=== PATIENT | female | born 1960 | race Caucasian/White ===

== ENCOUNTER → 2016-09-02 | Outpatient (CLI) | payer OTHER | LOC: BMCIMAGING 09:19 | PROVIDERS: ATTEND Internal Medicine Endocrinology, Diabetes & Metabolism | DX: E04.2 Nontoxic multinodular goiter (principal) | CPT/HCPCS: 76536-PO ==

== ENCOUNTER → 2017-10-31 | Outpatient (CLI) | payer OTHER | LOC: BMCIMAGING 13:10 | PROVIDERS: ATTEND Family Medicine | DX: Z12.31 Encounter for screening mammogram for malignant neoplasm of breast (principal) ==

== ENCOUNTER 2018-02-08 09:49 | Inpatient (IN) | payer OTHER ==
--- NOTE | 2018-02-08 09:51 | EDPHY ---
HPI/HX/ROS/PE/MDM Narrative: CHIEF COMPLAINT: Low back pain HPI: The patient is a 57 y/o female arriving via EMS complaining of lower left back pain associated with spasms onset 3 days ago. The patient was shoveling dirt and rocks one day prior to onset of symptoms; she denies having pain immediately after shoveling. However, the next morning she was unable to get out of bed due to the pain. This back pain is more severe than prior episodes of back pain. She denies falling or hitting her back prior to onset of symptoms. She was able to stand up to go to the bathroom, but was unable to physically sit on the toilet as it exacerbated her pain. She denies painful urination or numbness. Last night she developed minor tingling in her left leg associated with pain in her left ankle. This morning the pain continued, so she took 2 tablets of Naproxen and 1 tablet of Valium at 8:30. As the pain has not improved after taking the medications she decided to call EMS. While en route to the emergency department the patient had stable vital signs and was given 4mg Zofran. No headache, neck pain, chest pain, abdominal pain, bowel complaints , fever. REVIEW OF SYSTEMS: Aside from elements discussed in the HPI, a comprehensive 10 system review of systems is otherwise negative. PMH: Hypercholesteremia, no vertebral artery, knee surgery, tonsillectomy, c- sections SOCIAL HISTORY: at bedside, lives in [place], employed with the [employer] PHYSICAL EXAM: General: Patient is alert, in no acute distress. ENT: Eyes are normal to inspection. ENT inspection normal. Neck: Normal inspection. Full range of motion. Respiratory: No respiratory distress. Breath sounds normal bilaterally. Cardiovascular: Regular rate and rhythm. Strong peripheral pulses. Normal cap refill. Abdomen: The abdomen is nontender to palpation. There are no peritoneal signs. There are normal bowel sounds. Back: Normal to inspection. Tenderness to palpation present in left sciatic notch region. Skin: Normal color. No rash. Warm and dry. Extremities: Normal appearance. Full range of motion. Neuro: Oriented x3. Normal motor function. 5/5 strength in bilateral lower extremities. Normal sensory function. No saddle anesthesia. Ambulatory without assistance but with pain. ED Course: 948: I met EMS upon arrival. Imaging and laboratory studies are not indicated at this time. 10mg PO Flexeril, 0.5mg IV Dilaudid, and 15mg IV Toradol administered. 1050: Reassessed patient, she is actively vomiting; 4mg IV Zofran administered. 1323: Reassessed patient, her pain and nausea has improved after medication. She is safe to be discharged. I have prescribed her Percocet, Flexeril, Zofran, and a Medrol-dose pack. I have also advised her to follow up with a neurosurgeon within the next week. Return precautions provided; patient is comfortable with this plan. 1443: Reassessed patient, she is unable to stand up and ambulate. She will need to be admitted for pain control, which she is comfortable with. 1449: I consulted with the hospitalist service, Dr. Dunlap accepts admission of this patient. MDM: This patient presents with severe left-sided atraumatic low back pain. From history, it sounds like this has been slowly worsening and was exacerbated by shoveling. History is highly suggestive of herniated disc/sciatica. Given no signs of cauda equina or infectious etiology, and no history of trauma, I do not think MRI or other imaging is indicated. Despite numerous pain medication modalities, patient still having severe pain and does not feel she can stand drive back to [facility]. They have elected for observation admit for pain control and further workup. I see no signs of AAA, pyelonephritis, kidney stone , bowel obstruction. - Data Points Laboratory Results: Laboratory Results 02/08/18 11:55 02/08/18 11:55 02/08/18 02/08/18 02/08/18 12:20 11:55 11:55 WBC 10.11 10^3/uL H 10^3/uL (3.80-9.50) RBC 4.80 10^6/uL 10^6/uL (4.18-5.33) Hgb 14.5 g/dL g/dL (12.6-16.3) Hct 44.6 % % (38.0-47.0) MCV 92.9 fL fL (81.5-99.8) MCH 30.2 pg pg (27.9-34.1) MCHC 32.5 g/dL g/dL (32.4-36.7) RDW 13.8 % % (11.5-15.2) Plt Count 304 10^3/uL 10^3/uL (150-400) MPV 9.6 fL fL (8.7-11.7) Neut % (Auto) 86.8 % H % (39.3-74.2) Lymph % (Auto) 8.8 % L % (15.0-45.0) Geary % (Auto) 4.1 % L % (4.5-13.0) Eos % (Auto) 0.0 % L % (0.6-7.6) Baso % (Auto) 0.2 % L % (0.3-1.7) Nucleat RBC Rel Count 0.0 % % (0.0-0.2) Absolute Neuts (auto) 8.78 10^3/uL H 10^3/uL (1.70-6.50) Absolute Lymphs (auto) 0.89 10^3/uL L 10^3/uL (1.00-3.00) Absolute Monos (auto) 0.41 10^3/uL 10^3/uL (0.30-0.80) Absolute Eos (auto) 0.00 10^3/uL L 10^3/uL (0.03-0.40) Absolute Basos (auto) 0.02 10^3/uL 10^3/uL (0.02-0.10) Absolute Nucleated RBC 0.00 10^3/uL 10^3/uL (0-0.01) Immature Gran % 0.1 % % (0.0-1.1) Immature Gran # 0.01 10^3/uL 10^3/uL (0.00-0.10) Sodium 141 mEq/L mEq/L (135-145) Potassium 4.5 mEq/L mEq/L (3.3-5.0) Chloride 109 mEq/L mEq/L (97-110) Carbon Dioxide 24 mEq/l mEq/l (22-31) Anion Gap 8 mEq/L mEq/L (8-16) BUN 19 mg/dL mg/dL (7-23) Creatinine 0.7 mg/dL mg/dL (0.6-1.0) Estimated GFR > 60 Glucose 122 mg/dL H mg/dL (70-100) Calcium 9.3 mg/dL mg/dL (8.5-10.4) Urine Color YELLOW Urine Appearance HAZY Urine pH 5.0 (5.0-7.5) Ur Specific Violet 1.034 H (1.002-1.030) Urine Protein NEGATIVE (NEGATIVE) Urine Ketones 1+ H (NEGATIVE) Urine Blood NEGATIVE (NEGATIVE) Urine Nitrate NEGATIVE (NEGATIVE) Urine Bilirubin NEGATIVE (NEGATIVE) Urine Urobilinogen 2.0 EU H EU (0.2-1.0) Ur Leukocyte Esterase NEGATIVE (NEGATIVE) Urine Glucose NEGATIVE (NEGATIVE) Medications Given: Discontinued Medications Cyclobenzaprine HCl (Flexeril) 10 mg PO EDNOW ONE Stop: 02/08/18 10:02 Last Admin: 02/08/18 10:09 Dose: 10 mg Hydromorphone HCl (Dilaudid) 0.5 mg IVP EDNOW ONE Stop: 02/08/18 10:01 Last Admin: 02/08/18 10:09 Dose: 0.5 mg Ketorolac Tromethamine (Toradol) 15 mg IVP EDNOW ONE Stop: 02/08/18 10:01 Last Admin: 02/08/18 10:09 Dose: 15 mg Ondansetron HCl (Zofran) 4 mg IVP EDNOW ONE Stop: 02/08/18 11:00 Last Admin: 02/08/18 11:43 Dose: 4 mg General Time Seen by Provider: 02/08/18 09:49 Initial Vital Signs: Initial Vital Signs Temperature (C) 36.5 C 02/08/18 09:55 Heart Rate 81 02/08/18 09:55 Respiratory Rate 16 02/08/18 09:55 Blood Pressure 124/86 H 02/08/18 09:55 O2 Sat (%) 97 02/08/18 09:55 O2 Delivery Mode Nasal Cannula O2 (L/minute) 2 Allergies/Adverse Reactions: codeine [Codeine] Allergy (Verified 01/25/11 12:41) Iodinated Contrast- Oral and IV Dye [IV Dye, Iodine Containing Contrast ] Allergy (Verified 01/25/11 12:41) Penicillins Allergy (Verified 01/25/11 12:41) Home Medications: Medication Instructions Recorded Statin 01/25/11 Cyclobenzaprine [Flexeril] 10 mg PO TID #15 tab 09/12/18 DIAZEPAM 02/08/18 Ondansetron Odt [Zofran Odt] 4 mg PO Q4PRN PRN #10 tab 02/08/18 methylPREDNISolone [Medrol Dose 1 each PO AD #1 ea 02/08/18 Shawn] oxyCODONE/APAP 5/325 [Percocet 1 - 2 tab PO Q6H PRN #20 tab 02/08/18 5/325 (*)] Departure - Departure Disposition: [facility] Inpatient Acute Clinical Impression: Pain management Low back pain Qualifiers: Chronicity: acute Back pain laterality: left Sciatica presence: without sciatica Qualified Code(s): M54.5 - Low back pain Condition: Fair Report Scribed for: Ezra Massey Report Scribed by: Xin Tyson Date of Report: 02/08/18 Time of Report: 09:52 Physician Review and Approval Statement: Portions of this note were transcribed by an ED scribe. I personally performed the history, physical exam, and medical decision making; and confirm the accuracy of the information in the transcribed note.
[2018-02-08] MEDS ORDERED: HYDROmorphONE/DILAUDID 2 MG/ML INJ IVP ONE (10:00)
[2018-02-08] MEDS ORDERED: KETOROLAC 30 MG/1 ML SDV IVP ONE (10:00)
[2018-02-08] MEDS ORDERED: CYCLOBENZAPRINE 10 MG TAB PO ONE (10:01)
[2018-02-08] MEDS ORDERED: ONDANSETRON 4 MG/2 ML VIAL ONE (10:53)
[2018-02-08] MEDS ORDERED: ONDANSETRON 4 MG/2 ML VIAL IVP ONE (10:59)
[2018-02-08 12:06] LABS: PLATELET COUNT 304 10^3/uL (150-400)
[2018-02-08] MEDS ORDERED: ACETAMINOPHEN 325 MG TAB PO PRN (15:40)
[2018-02-08] MEDS ORDERED: HYDROmorphONE/DILAUDID 1 MG/ML INJ IVP PRN (15:40)
[2018-02-08] MEDS ORDERED: PROMETHAZINE HCL 25 MG/ML INJ IVP PRN (15:40)
[2018-02-08] MEDS ORDERED: DIAZEPAM 10 MG TAB PO PRN (16:18)
[2018-02-08] MEDS: DIAZEPAM 5 MG TAB PO PRN (16:51)
--- NOTE | 2018-02-08 17:07 | GHP ---
DATE OF ADMISSION: 02/08/2018 CHIEF COMPLAINT: Low back pain. HISTORY OF PRESENT ILLNESS: The patient is a 57-year-old female who has been having low back spasms off and on for the last couple months, typically when she rolls over in bed at night, but subsequentl y she would get relief. 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 H ad a big cramp yesterday, but it resolved, and now she woke up this morning with severe continuous pa in that is unrelenting. It is on the left side of her spine, 10/10, lumbar radiating down the back o f her leg. She denies any lower extremity numbness or weakness. There is no urinary incontinence. There have been no fever, chills, or weight loss. Mobility is so severely compromised her co uld not get her into the car, and they had to call 911 to get her to the emergency room. She has tro uble going to the restroom and cannot sit upright. PAST MEDICAL HISTORY: 1. Asthma. 2. 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 3. Hypercholesterolemia. PAST SURGICAL HISTORY: 1. Tonsillectomy. 2. Knee surgery. 3. x2. MEDICATIONS: Please see computer record full detailed list. ALLERGIES: IV dye and penicillin. SOCIAL HISTORY: No smoking. She occasionally will drink a beer. She lives with her . They own a hobby ranch with horses. REVIEW OF SYSTEMS: Complete review of systems obtained. Review of systems negative for constitution al, HEENT, GI, pulmonary, cardiovascular, , hematologic, musculoskeletal, endocrine, and psych exce pt for positives as in HPI. FAMILY HISTORY: Reviewed and noncontributory to presenting complaint. PHYSICAL EXAMINATION: GENERAL: Well-developed, well-nourished female, in no acute distress. VITAL SIGNS: Temperature is 36.5, pulse 92, blood pressure 134/77, sat 94% on room air. EYES: Normal con junctivae. Pupils equal and react to light. ENT: Normal ears and nose. Hearing intact. Normal te eth. Oropharynx moist. NECK: Trachea midline. No thyromegaly. CHEST: Normal respiratory effort. LUNGS: Clear to auscultation bilaterally. CARDIOVASCULAR: Regular rate and rhythm. No murmur. No lower extremity edema. ABDOMEN: Soft, nontender. No hepatosplenomegaly. SKIN: Warm, dry, inta ct. No rash. MUSCULOSKELETAL: No cyanosis or clubbing. Strength 5/5 upper and lower extremities. NEUROLOGIC: Cranial nerves intact. Normal sensation to light touch. PSYCH: Alert and oriented x3 . Normal affect. Normal judgment and insight. Normal memory. LABORATORY DATA: White count 10.11, hematocrit 44.6, platelets 304. Sodium 141, potassium 4.5, chlo ride 109, bicarb 24, BUN 19, creatinine 0.7, glucose 1.2. Urinalysis is negative. ASSESSMENT/PLAN: 1. Severe low back pain with radiculopathy down the left leg. Unable to safely ambulate. Will admi t to observation. Will order MRI of the lumbar spine. I have consulted Neurosurgery and spoken with Stacey ROBERTS regarding consultation. Pain control will be continued with IV Dilaudid. She ma y benefit from an epidural steroid injection. 2. Hyperlipidemia. Continue Crestor. 3. Asthma. This is stable. CODE STATUS: Full. ADMISSION STATUS: Will admit to observation. Re-evaluate tomorrow regarding ongoing need for hospit alization. DVT PROPHYLAXIS: She is low risk. Will ambulate early. /[id number]/MODL
--- NOTE | 2018-02-08 17:17 | GCON ---
NEUROSURGICAL CONSULTATION CHIEF COMPLAINT: Low back pain, and left buttock and posterior thigh pain. HISTORY OF PRESENT ILLNESS: The patient is a pleasant 57-year-old female, who states that for the several months she has been dealing with occasional flare-ups of tailbone, and left buttock and po sterior thigh pain. Typically, she states that stretching and antiinflammatories alleviate her sympt oms. Approximately 2 days ago on Tuesday, the patient developed severe spasms in her left buttock and posterior thigh, as well as tailbone pain that she thinks were triggered after moving some rocks and hay, and working at a horse show. Her usual treatment options failed to improve her symptoms. She was in such significant pain that she required an ambulance to transport her from her hospital in [facility] down to the [facility] Emergency Department. The patient has subsequently been admitted to the medicine service for pain control and is pending a lumbar MRI. Currently, she rates her pain at 4/10 after being given Flexeril, Toradol, and Dilaudid in the ED. She states she is having occasional severe muscle spasms in her left buttock and posterior thigh. Sh jack is not having any pain below the left knee and no right leg pain. She denies any bowel or bladder incontinence, but states she has not had a bowel movement since Tuesday. She is not reporting any num bness, tingling, or weakness. ALLERGIES: 1. Codeine. 2. Penicillin, which causes a rash. 3. Contrast dye. CURRENT MEDICATIONS: Naprosyn, Crestor, and 325 mg of aspirin daily. PAST MEDICAL HISTORY: Occluded left vertebral artery. PAST SURGICAL HISTORY: Tonsillectomy, x2, and right ACL repair. REVIEW OF SYSTEMS: Low back pain. Left buttock, tailbone, and posterior thigh pain. Left scapular pain. Also, nausea. Otherwise negative, other than mentioned in the HPI. PHYSICAL EXAM: GENERAL: This is a pleasant, healthy-appearing 57-year-old female in moderate distre ss. HEAD, EYES, EARS, NOSE, AND THROAT: Within normal limits. EXTREMITIES: Within normal limits. NEUROLOGIC EXAM: The patient is awake, alert, and oriented x4. Cranial nerves [address] to gross examination. Speech is fluent. Tongue is midline. Spinal accessory muscles are intact. She has equal and symmetric strength of bilateral upper and lower extremities in all muscle groups, with normal sensation in all dermatomal distributions of the bilateral upper and lower extremities. Reflexes are 2+/4 at bilateral biceps and brachioradialis, 3/4 in left patellar, and 1/4 in right pa tellar with no Garcia and no clonus. She has a positive left straight leg raise over 45 degrees. DATA REVIEW: White blood cell count 10.1, hemoglobin 14.5, hematocrit 44.6, and platelets 304. Sodi um is 141. IMPRESSION: This is a 57-year-old female with a several-month history of intermittent low back, left buttock, and posterior thigh pain, who has had an acute flare-up for the past 2 days. Neurologicall y, the patient is intact. Her pain is now under better control at 4/10 since receiving pain medicati ons and muscle relaxants in the emergency department. PLAN: All above issues were discussed with the patient in detail, with her present. At this time, I recommend that the patient continue receiving pain medications and muscle relaxants as neede d for pain control. She would also benefit from a 10 mg dose of Decadron x1, which we will order. T he patient is currently slated to undergo an MRI this evening of the lumbar spine. Further treatment recommendations will be offered upon review of those results. /[id number]/MODL
[2018-02-08] MEDS: ONDANSETRON 4 MG/2 ML VIAL IVP PRN (18:42)
[2018-02-08] MEDS: KETOROLAC 30 MG/1 ML SDV IVP PRN (18:42)
[2018-02-08] MEDS: ROSUVASTATIN CALCIUM 20 MG TAB PO SCH (20:16)
[2018-02-08] MEDS: traMADol 50 MG TAB PO PRN (20:28)
[2018-02-08] MEDS: HYDROmorphone HCL 0.5 MG/0.5 ML SYR IVP PRN (22:39)
[2018-02-09] MEDS: traMADol 50 MG TAB PO PRN (04:10)
[2018-02-09] MEDS ORDERED: MAGNESIUM HYDROXIDE 30 ML UDCUP PO PRN (08:35)
[2018-02-09] MEDS: ONDANSETRON 4 MG/2 ML VIAL IVP PRN (08:35)
[2018-02-09] MEDS ORDERED: LACTULOSE 20 GM/30 ML UDCUP PO PRN (08:35)
[2018-02-09] MEDS ORDERED: POLYETHYLENE GLYCOL 3350 17 GM PKT PO PRN (08:35)
[2018-02-09] MEDS ORDERED: BISACODYL 10 MG SUPP PR PRN (08:35)
[2018-02-09] MEDS: KETOROLAC 30 MG/1 ML SDV IVP PRN ×3 (08:35→20:40)
[2018-02-09] MEDS: oxyCODONE IR 5 MG TAB PO PRN ×3 (08:36→20:51)
[2018-02-09] MEDS: DIAZEPAM 5 MG TAB PO PRN ×2 (08:36→15:53)
--- NOTE | 2018-02-09 09:23 | NEUSURGPN ---
Assessment/Plan: A: 57 yo F with intractable left sided low back pain P: MRI L spine reviewed - to be reviewed by Dr Reynolds today. Shows disc bulges at L45 and L5S1. There may be some slight nerve compression on the left at L5/S1. I have ordered a left L5/S1 IL JIM - Dr Reynolds to review the images to see if he agrees with this plan PT/OT Pain control D/w Dr Reynolds Call NS with any issues Subjective: Pt resting in bed, was able to sleep last night. Pain controlled right now but has not moved yet Objective: AAOx3 NAD VSS MAEx4 Motor 5/5 BLE +LT Urinary Catheter in Place: No - Physician Discussed Patient with .: Marko Neurosurgery Physical Exam - Vitals, I&O, Labs I and O 02/08/18 02/09/18 02/10/18 05:59 05:59 05:59 Intake Total 1700 Output Total 645 Balance 1055 Weight 70.307 kg Intake: Oral (ml) 700 IV Infused (ml) 1000 Output: Urine (ml) 600 Catheter 600 Emesis (ml) 45 Other: Output Comment Catheter Straight cath Bladder Scan Volume (ml) Bedside Commode 600 Number of Emesis 1 Occurrences Vital Signs Temp Pulse Resp BP Pulse Ox 37.1 C 67 16 111/76 88 L 02/09/18 08:54 02/09/18 08:54 02/09/18 08:54 02/09/18 08:54 02/09/18 09:20 ICD10 Worksheet Patient Problems: Problems Problem Status Onset Low back pain Acute Pain management Acute
--- NOTE | 2018-02-09 09:25 | HOSPPROG ---
Hospitalist Progress Note Assessment/Plan: DIAGNOSES: * lumbar buttock and left posterior thigh pain with muscle spasms * lumbar disc disease with some L5-S1 disc protrusion on the left potentially contributing to her symptoms * ongoing inability to get herself from lying to sitting due to pain and spasms * has required urethral straight catheterization for bladder voiding due to inability to get to bedside commode or bed villanueva with her pain PLANS: * Continue muscle relaxers and analgesics * She is scheduled for an epidural steroid injection today * Continued attempts to increase mobility as able * If we are unable to increase her mobility successfully will end up needing to continue management of her pain and other issues here in the hospital, in which case I will change her to inpatient status SUBJECTIVE: Still with severe back and leg pain on the left, severe spasms and increased pain with any attempted movement so remains lying supine in bed Has only once been able to get up to commode and that took approximately 40 min to get from bed to commode with assistance of 2 staff and with extra medication Was able to empty bladder when she got up. No incontinence of bowel or bladder , no loss of sensation anywhere OBJECTIVE Vitals reviewed: Stable without fever Exam: alert oriented skin warm dry color ok resps not labored lungs clear BSs heart regular abd soft nondistended nontender, bowel sounds present limbs warm, no edema iv site ok Objective: Vital Signs Temp Pulse Resp BP Pulse Ox 37.1 C 67 16 111/76 88 L 02/09/18 08:54 02/09/18 08:54 02/09/18 08:54 02/09/18 08:54 02/09/18 09:20 02/08/18 02/09/18 02/10/18 06:59 06:59 06:59 Intake Total 1700 Output Total 645 Balance 1055 ICD10 Worksheet Patient Problems: Problems Problem Status Onset Low back pain Acute Pain management Acute
[2018-02-09] MEDS: SENNOSIDES/DOCUSATE SODIUM TAB PO SCH ×2 (09:26→20:41)
[2018-02-09] MEDS: HYDROmorphone HCL 0.5 MG/0.5 ML SYR IVP PRN ×2 (09:33→15:53)
[2018-02-09] MEDS ORDERED: DEXAMETHASONE 10 MG/ML VIAL IV ONE (11:45)
--- NOTE | 2018-02-09 14:17 | ASMTCASEMG ---
Living Arrangements What is your living Answers: With Spouse arrangement? Who do you live with? Type Of Residence What kind of residence do Answers: House you live in? Discharge Plan Comments Coordination Status Comments Notes: Pts case discussed in tx rounds. Pt is a 57 y/o female admitted for back pain. 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 Therapies have been ordered and awaiting recommendations. Needs are TBD at this time. CM to follow. Plan: TBD Date Signed: 02/09/2018 01:55 PM Electronically Signed By:DENZEL Walker
[2018-02-09] MEDS ORDERED: TRIAMCINOLONE ACETONIDE 200 MG/5 ML MDV IM ONE (14:54)
[2018-02-09] MEDS ORDERED: IOPAMIDOL (ISOVUE-M 300) 15 ML VIAL ONE (14:54)
[2018-02-09] MEDS: ROSUVASTATIN CALCIUM 20 MG TAB PO SCH (20:41)
[2018-02-09] MEDS ORDERED: CALCIUM CARBONATE 500 MG CHEWABLE TAB PO PRN (22:15)
[2018-02-10] MEDS: oxyCODONE IR 5 MG TAB PO PRN ×3 (02:30→20:40)
[2018-02-10] MEDS: DIAZEPAM 5 MG TAB PO PRN ×2 (02:31→10:39)
[2018-02-10 03:59] LABS: PLATELET COUNT 291 10^3/uL (150-400)
--- NOTE | 2018-02-10 06:46 | PDMN ---
Medical Necessity Medical necessity: Change to inpt as of 02/09/18 @ 21:30. Pt meets inpt criteria per MD order and [facility] [place]. 57 y/o admitted w/severe low back pain w/ radiculopathy to E, very limited mobility, unable to sit or stand due to pain/ muscle spasms, has required urethral straight catheterization for bladder voiding due to immobility. Neurosurg consult, MRI pelvis and lumbar spine, further diagnostics needed to determine cause of pain, ortho consult pending, IV Dilaudid and IV Toradol for pain in addition to PO, IV Phenergan or Zofran for N/V, ongoing PT eval, anticipate>2MN for further evaluation and treatment.
--- NOTE | 2018-02-10 07:51 | NEUSURGPN ---
Assessment/Plan: A: 57 yo F with intractable left sided low back pain P: MRI L spine reviewed - to be reviewed by Dr Reynolds today. Shows disc bulges at L45 and L5S1 but no severe compression. Dr. Reynolds does not think her pain is spine related and the JIM was cancelled MRI pelvis done and report is pending, ortho eval pending Pain control D/w Dr Reynolds Call NS with any issues Subjective: Pt resting in bed, states pain is the same Objective: AAOx3 NAD VSS MAEx4 Motor 5/5 BLE +LT Urinary Catheter in Place: No - Physician Discussed Patient with : Marko Neurosurgery Physical Exam - Vitals, I&O, Labs I and O 02/09/18 02/10/18 02/11/18 05:59 05:59 05:59 Intake Total 220 Output Total 225 Balance -5 Intake: Oral (ml) 220 Output: Urine (ml) 225 Bedpan 0 Catheter 225 Other: Number of Voids Bedpan 1 Post Void Residual Scan Volume (ml) Bedpan 196 Vital Signs Temp Pulse Resp BP Pulse Ox 36.6 C 66 14 104/63 96 02/10/18 03:05 02/10/18 03:05 02/10/18 03:05 02/10/18 03:05 02/10/18 03:05 Laboratory Results 02/10/18 03:34 ICD10 Worksheet Patient Problems: Problems Problem Status Onset Low back pain Acute Pain management Acute
[2018-02-10] MEDS: KETOROLAC 30 MG/1 ML SDV IVP PRN ×2 (08:23→18:10)
[2018-02-10] MEDS: SENNOSIDES/DOCUSATE SODIUM TAB PO SCH ×2 (08:30→20:39)
[2018-02-10] MEDS: ONDANSETRON 4 MG/2 ML VIAL IVP PRN (11:30)
[2018-02-10] MEDS: HYDROmorphone HCL 0.5 MG/0.5 ML SYR IVP PRN (11:33)
--- NOTE | 2018-02-10 12:35 | ASMTCMCOM ---
CM Note CM Note Notes: Pts case discussed in tx rounds. PT is recommending DME and pending improvement of pain. Pt has not been up walking since getting to the hospital. Dr. Fatima will be visiting w/ pt today. Needs are TBD at this time. CM to follow. Plan: TBD Date Signed: 02/10/2018 12:15 PM Electronically Signed By:DENZEL Walker
[2018-02-10] MEDS: CYCLOBENZAPRINE 10 MG TAB PO SCH ×2 (12:55→20:40)
--- NOTE | 2018-02-10 17:31 | HOSPPROG ---
Hospitalist Progress Note Assessment/Plan: DIAGNOSES: * lumbar buttock and left posterior thigh pain with muscle spasms * lumbar disc disease with some L5-S1 disc protrusion on the left potentially contributing to her symptoms * ongoing inability to get herself from lying to sitting due to pain and spasms * has required urethral straight catheterization for bladder voiding due to inability to get to bedside commode or bed villanueva with her pain I reviewed her case again today with Dr. Oswald Zhu I have also reviewed her case today with Dr. Leon who will see her in consultation for orthopedic assessment Seen by me today on hospitals rounds as well as multidisciplinary rounds PLANS: * Continue muscle relaxers and analgesics * Continued attempts to increase mobility as able * Further management plans after consultation by Dr. Leon SUBJECTIVE: Again complains mainly of pain at the anterior inguinal and hip area on the left , with severe spasms that appear to be possibly ileuspsoas spasm on any movement of her trunk or hip Still with some constipation No specific fever symptoms Still nothing that sounds like a radiculopathy or other neuropathic symptom OBJECTIVE Vitals reviewed: Stable without fever Exam: alert oriented currently while lying in bed appears uncomfortable but relaxed; per patient and staff and she has been in exquisite pain with any attempts at movement skin warm dry color ok resps not labored lungs clear BSs heart regular abd soft nondistended nontender, bowel sounds present limbs currently not much in the way of specific identifiable tenderness or palpable abnormalities around the left hip inguinal area pelvis or thigh, still with severe pain with attempting to sit up or stand though I am able still to move her left leg in passive range of motion without too much difficulty, though she is unable to move it actively on her own iv site ok Lab data: White blood cell count is a little bit better today, sed rate is normal Radiology: MRI of the pelvis and hip with and without contrast shows a partial anterior labral tear at the left hip, some tendinosis of the left hamstring origin, no evidence of ileus OS or other muscular abnormality, abscess, or other inflammatory infectious process. Objective: Vital Signs Temp Pulse Resp BP Pulse Ox 37.1 C 63 19 105/71 91 L 02/10/18 15:46 02/10/18 15:46 02/10/18 15:46 02/10/18 15:46 02/10/18 15:46 Laboratory Results 02/10/18 03:34 02/09/18 02/10/18 02/11/18 06:59 06:59 06:59 Intake Total 220 Output Total 225 225 Balance -5 -225 - Time Spent With Patient Time Spent with Patient: greater than 35 minutes Time Spent with Patient: Greater than 35 minutes spent on this patients care, greater than 50% of time spent counseling, educating, and coordinating care regarding the above mentioned plan. ICD10 Worksheet Patient Problems: Problems Problem Status Onset Low back pain Acute Pain management Acute
[2018-02-10] MEDS: ROSUVASTATIN CALCIUM 20 MG TAB PO SCH (20:40)
[2018-02-11] MEDS: CYCLOBENZAPRINE 10 MG TAB PO SCH ×3 (05:40→20:29)
[2018-02-11] MEDS: KETOROLAC 30 MG/1 ML SDV IVP PRN ×2 (08:19→17:20)
[2018-02-11] MEDS: oxyCODONE IR 5 MG TAB PO PRN ×3 (08:24→17:20)
[2018-02-11] MEDS: SENNOSIDES/DOCUSATE SODIUM TAB PO SCH ×2 (08:29→20:29)
--- NOTE | 2018-02-11 08:56 | NEUSURGPN ---
Assessment/Plan: 57 yo F with intractable left sided low back pain P: MRI L spine reviewed - to be reviewed by Dr Reynolds and shows disc bulges at L45 and L5S1 but no severe compression. Dr. Reynolds is not certain her pain is spine related and the JIM was cancelled. MRI pelvis done with findings of partial labrum tear and ischial tuberosity edema, ortho eval pending to determine if felt this is the cause Pain control D/w Dr Reynolds Call NS with any issues NS will continue to follow along with further recs pending ortho eval Subjective: still with continued severe inguinal pain left leg, as well as some secondary pain down the lateral left leg. no c/o of weakness. unable to bear weight or move leg d/t pain/ Objective: acute left sided pain at attempting strength on right leg AAOx4 VSS EOMi, PEARLA MAEx4, 5/5 BUE Pain limited BLE, RLE 5/5, DF/PF/EHL 5/5, unable to assess left hip, knees d/t pain SILT - Physician Discussed Patient with : [facility] Physical Exam - Vitals, I&O, Labs I and O 02/10/18 02/11/18 02/12/18 05:59 05:59 05:59 Intake Total 220 300 Output Total 225 625 Balance -5 -325 Intake: Oral (ml) 220 300 Output: Urine (ml) 225 625 Bedpan 0 Bedside Commode 400 Catheter 225 225 Other: Output Comment Catheter straight cath Number of Voids Bedpan 1 Bedside Commode 1 Number of Stools Bedside Commode 1 Bladder Scan Volume (ml) Bedpan 270 Post Void Residual Scan Volume (ml) Bedpan 196 Vital Signs Temp Pulse Resp BP Pulse Ox 36.4 C 75 18 123/90 H 95 02/11/18 08:00 02/11/18 08:00 02/11/18 08:00 02/11/18 08:00 02/11/18 08:00 Laboratory Results 02/10/18 03:34 ICD10 Worksheet Patient Problems: Problems Problem Status Onset Low back pain Acute Pain management Acute
--- NOTE | 2018-02-11 12:47 | GCON ---
I was asked to see the patient by the Medicine Service, with a chief complaint of left hip pain. She has been seen by Neurosurgery. She has been admitted a few days ago to the hospital with intractabl e left hip pain. It has abated somewhat over the course of her stay with various muscle relaxers and pain management, but overall still quite debilitating and limits the patient from walking. She has really been unable to get out of bed for a few days. The patient states that this pain has been brant g on for several months, she believes about 6 months, with pain localized to the left groin. It seem s to be located just over the hip joint in the inguinal fold. She also states that there was a separ ate and probably distinct component based on her description, which is down the lateral aspect of her left leg, down the lateral thigh and calf area. There is no alteration of sensation. She does not have any discernible weakness outside of hip flexion, which is essentially 0/5 because of pain at thi s time. She denies any fevers, chills, recent travel, IV drug use, or recent infections. She has no t really had any of those problems over the last 6 months. She denies any trauma. No recent surgery or possibility of a foreign body introduction. PHYSICAL EXAM: Grossly, it is unremarkable with the exception of hip flexion. Hip range of motion i s full. ROMY test is negative. [place] is negative. In fact, I am able to fully extend the left hip without any pain. She also has full passive flexion of the hip. So really, what we are looking at is a completely isolated left hip flexion problem. Skin overlying the hip is clean, dry, intact. She is both neurologically and neurovascularly intact. Straight leg raise is negative. IMAGING: I reviewed all images, including a lumbar spine MRI as well as a pelvis MRI. Lumbar spine MRI is grossly normal and is being managed by Neurosurgery. There is no evidence of stenosis that wo uld really cause the symptoms she is having here. Specifically, radiation into the groin would proba agustín be an L1 or, less likely, an L2 problem, and the nerve roots appear to be completely free of any sort of stenosis or lesion. With regard to the pelvis MRI, the entire origin of the iliacus and psoa s muscles are visualized and are without abnormality. I do not see any evidence of abscess. There i s some mild hamstring tendinopathy. There is also a mild labral tear, which is degenerative and some what age expected. IMPRESSION: Left iliopsoas pain, possible femoroacetabular pathology, labral tear, findings as above per Neurosurgery regarding the lumbar spine. ASSESSMENT AND PLAN: Differential for this patient really includes anything that involves the iliops oas tendon and/or hip joint. At this point, the differential is quite broad, but we are really looki ng at a diagnosis of exclusion here, because all imaging up to this point is normal. An EMG probably would not help us in terms of a diagnosis. I cannot think of any further study that would help eluc idate what is going on here, aside from a diagnostic injection with Interventional Radiology. The li kelihood of this being anything infectious is quite small, as the patient's markers are normal, and s he has been afebrile for the last 6 months. She also has a completely pain-free range of motion abou t the left hip, which is, again, somewhat surprising, given the remainder of her exam. This makes a hip joint infection extremely unlikely and a synovitis also unlikely. PLAN: I have recommended a left hip and left iliopsoas tendon injection with local anesthetic and co rticosteroid. This will probably have both a diagnostic and therapeutic effect for the patient. Thi s is in addition to any sort of medical management for oral medications. And a diagnosis of exclusio n here would also be some sort of a psychosomatic cause as well. If additional clinical consultation is considered, a rheumatology consult may be beneficial. I will continue to follow this patient. Thank you kindly for considering us for your consultation. Cellphone [phone]. /[id number]/MODL
[2018-02-11] MEDS: HYDROmorphone HCL 0.5 MG/0.5 ML SYR IVP PRN (13:20)
--- NOTE | 2018-02-11 13:56 | HOSPPROG ---
Hospitalist Progress Note Assessment/Plan: DIAGNOSES: * lumbar buttock and left posterior thigh pain with muscle spasms * lumbar disc disease with some L5-S1 disc protrusion on the left potentially contributing to her symptoms * ongoing inability to get herself from lying to sitting due to pain and spasms * has required urethral straight catheterization for bladder voiding due to inability to get to bedside commode or bed villanueva with her pain I reviewed her case today with Dr. Leon. The MRI findings primarily show a partial tear of anterior labrum at the left hip. Dr. Sathya loepz feels that this is not likely to be the cause of this severe incapacitating pain. Clearly there is spasm of muscle involved but what is triggering that spasm is entirely unknown to us at the present time. No evidence of acute muscular injury, infection, Seen by me today on hospitals rounds as well as multidisciplinary rounds PLANS: * Continue muscle relaxers and analgesics * Continued attempts to increase mobility as able, with physical therapy * Dr. Roel Fan has recommended that we have radiology perform injection into the left hip joint as well as the ileopsoas tendon, and Dr. Jackson has been consulted and will see the patient. SUBJECTIVE: With the same severe spasm pains in the left hip inguinal area with any active movement of the hip or with attempts to sit up rule over to the side or stand, still unable to get out of bed without at least 2 people assisting her and needs to have her left leg held in 90 degree hip flexion by 1 of the assistance to be able to get from bed to commode at bedside Still no neurologic symptoms and no fever symptoms OBJECTIVE Vitals reviewed: Stable without fever Exam: alert oriented currently while lying supine in bed appears uncomfortable but relaxed skin warm dry color ok resps not labored lungs clear BSs heart regular abd soft nondistended nontender, bowel sounds present limbs still no palpable abnormalities at the hip or pelvis or inguinal area, the only time we can really elicit significant acute increase in pain is with attempts to sit up, rule the patient to the side, or any attempts at active hip motions per the patient iv site ok Radiology: MRI of the pelvis and hip with and without contrast shows a partial anterior labral tear at the left hip, some tendinosis of the left hamstring origin, no evidence of ileus OS or other muscular abnormality, abscess, or other inflammatory infectious process. Objective: Vital Signs Temp Pulse Resp BP Pulse Ox 36.4 C 75 18 123/90 H 95 02/11/18 08:00 02/11/18 08:00 02/11/18 08:00 02/11/18 08:00 02/11/18 08:00 Laboratory Results 02/10/18 03:34 02/10/18 02/11/18 02/12/18 06:59 06:59 06:59 Intake Total 220 300 Output Total 225 625 Balance -5 -325 - Time Spent With Patient Time Spent with Patient: greater than 35 minutes Time Spent with Patient: Greater than 35 minutes spent on this patients care, greater than 50% of time spent counseling, educating, and coordinating care regarding the above mentioned plan. ICD10 Worksheet Patient Problems: Problems Problem Status Onset Low back pain Acute Pain management Acute
[2018-02-11] MEDS ORDERED: DEPO METHYLPREDNISOLONE 80 MG/ML SDV ONE (15:42)
[2018-02-11] MEDS ORDERED: LIDOCAINE 1% 300 MG/30 ML SDV ONE (15:42)
[2018-02-11] MEDS ORDERED: DEPO METHYLPREDNISOLONE 40 MG/ML SDV ONE (15:42)
[2018-02-11] MEDS ORDERED: IOPAMIDOL (ISOVUE 370) 100 ML BTL IV ONE (16:22)
[2018-02-11] MEDS ORDERED: diphenhydrAMINE 25 MG CAP PO PRN (19:30)
[2018-02-11] MEDS: ROSUVASTATIN CALCIUM 20 MG TAB PO SCH (20:29)
[2018-02-12] MEDS: KETOROLAC 30 MG/1 ML SDV IVP PRN ×2 (00:03→20:01)
[2018-02-12] MEDS: CYCLOBENZAPRINE 10 MG TAB PO SCH ×3 (06:00→20:01)
[2018-02-12] MEDS: oxyCODONE IR 5 MG TAB PO PRN (06:09)
[2018-02-12] MEDS: ONDANSETRON 4 MG/2 ML VIAL IVP PRN (07:30)
[2018-02-12] MEDS: HYDROmorphone HCL 0.5 MG/0.5 ML SYR IVP PRN (07:31)
[2018-02-12] MEDS: SENNOSIDES/DOCUSATE SODIUM TAB PO SCH ×2 (07:35→21:00)
--- NOTE | 2018-02-12 12:08 | NEUSURGPN ---
Assessment/Plan: 57 yo F with intractable left sided inguinal pain, particulary with flexion and abduction of her left hip, as well as some secondary pain radiating below the knee down into the ankle MRI L spine reviewed - to be reviewed by Dr Reynolds and shows disc bulges at L45 and L5S1 but no severe compression. Dr. Reynolds is not certain her primary pain is spine related MRI pelvis done with findings of partial labrum tear and ischial tuberosity edema, ortho eval felt pain related to iliopsoas, attempted injection yesterday that had some positive response initially but the effects have waned. P: Pain control and muscle relaxers PT/OT continue to follow for response to steroid. Follow Ortho recs D/w Dr Reynolds Subjective: had injection yesterday and felt pain improve, now back to base line and unable to bear weight or left leg voluntarily dt pain. Continues to center pain in the inguinal, lateral inguinal area Objective: Sitting upright NAD transfers with help holding her LLE in flexion, non weight bearing on LLE EOMI, PEARLA MAEx4, 5/5= (L HF deferred d/t pain) SILT, reflexes 2+ no clonus. Urinary Catheter in Place: No - Physician Discussed Patient with : [facility] Physical Exam - Vitals, I&O, Labs I and O 02/11/18 02/12/18 02/13/18 05:59 05:59 05:59 Intake Total 300 1400 Output Total 124 395 6550 Balance -325 1250 -1100 Intake: Oral (ml) 300 1400 Output: Urine (ml) 096 845 0477 Bedside Commode 888 563 4041 Catheter 225 Other: Output Comment Catheter straight cath Number of Voids Bedside Commode 1 1 Number of Stools Bedside Commode 1 Bladder Scan Volume (ml) Bedpan 270 Vital Signs Temp Pulse Resp BP Pulse Ox 36.8 C 95 18 137/87 H 95 02/12/18 08:00 02/12/18 08:00 02/12/18 08:00 02/12/18 08:00 02/12/18 08:00 Laboratory Results 02/10/18 03:34 ICD10 Worksheet Patient Problems: Problems Problem Status Onset Low back pain Acute Pain management Acute
[2018-02-12] MEDS ORDERED: predniSONE 20 MG TAB PO ONE (13:26)
--- NOTE | 2018-02-12 13:27 | HOSPPROG ---
Hospitalist Progress Note Assessment/Plan: DIAGNOSES: * lumbar buttock and left posterior thigh pain with muscle spasms * lumbar disc disease with some L5-S1 disc protrusion on the left potentially contributing to her symptoms * ongoing inability to get herself from lying to sitting due to pain and spasms * has required urethral straight catheterization for bladder voiding due to inability to get to bedside commode or bed villanueva with her pain I reviewed her case today with Dr. Leon. The MRI findings primarily show a partial tear of anterior labrum at the left hip. Dr. Sathya lopez feels that this is not likely to be the cause of this severe incapacitating pain. Clearly there is spasm of muscle involved but what is triggering that spasm is entirely unknown to us at the present time. No evidence of acute muscular injury, infection, Seen by me today on hospitals rounds as well as multidisciplinary rounds PLANS: * Continue muscle relaxers and analgesics * Continued attempts to increase mobility as able, with physical therapy * Dr. Leon has recommended that we have interventional radiology perform injection into the left hip joint as well as the ileopsoas tendon, and Dr. Jackson has been consulted and will see the patient. SUBJECTIVE: With the same severe spasm pains in the left hip inguinal area with any active movement of the hip or with attempts to sit up rule over to the side or stand, still unable to get out of bed without at least 2 people assisting her and needs to have her left leg held in 90 degree hip flexion by 1 of the assistance to be able to get from bed to commode at bedside Still no neurologic symptoms and no fever symptoms OBJECTIVE Vitals reviewed: Stable without fever Exam: alert oriented currently while lying supine in bed appears uncomfortable but relaxed skin warm dry color ok resps not labored lungs clear BSs heart regular abd soft nondistended nontender, bowel sounds present limbs still no palpable abnormalities at the hip or pelvis or inguinal area, the only time we can really elicit significant acute increase in pain is with attempts to sit up, rule the patient to the side, or any attempts at active hip motions per the patient iv site ok Radiology: MRI of the pelvis and hip with and without contrast shows a partial anterior labral tear at the left hip, some tendinosis of the left hamstring origin, no evidence of ileus OS or other muscular abnormality, abscess, or other inflammatory infectious process. Objective: Vital Signs Temp Pulse Resp BP Pulse Ox 36.8 C 95 18 137/87 H 95 02/12/18 08:00 02/12/18 08:00 02/12/18 08:00 02/12/18 08:00 02/12/18 08:00 Laboratory Results 02/10/18 03:34 02/11/18 02/12/18 02/13/18 06:59 06:59 06:59 Intake Total 300 1400 Output Total 811 763 6975 Balance -325 1250 -1100 ICD10 Worksheet Patient Problems: Problems Problem Status Onset Low back pain Acute Pain management Acute
--- NOTE | 2018-02-12 14:34 | ASMTCMCOM ---
CM Note CM Note Notes: Chart reviewed for discharge planning purposes, patient continues to have pain that compromises her mobility. CM to follow. Plan: TBD Date Signed: 02/12/2018 02:33 PM Electronically Signed By:Antonietta Rubalcava RN
--- NOTE | 2018-02-12 17:23 | HOSPPROG ---
Hospitalist Progress Note Assessment/Plan: DIAGNOSES: * severe and incapacitating pain at the left hip and ilepsoas with any movement * Unknown etiology after multiple exams an MRI studies * Initial response last night after injections likely due to the lidocaine component which wore off by this morning with increased pain, followed by what hopefully is some improvement from the steroids starting to work, but we still have not gotten her to the point of being able to get up out of bed yet * lumbar disc disease with some L5-S1 disc protrusion on the left is very radiologically mild and not consistent with her presenting symptoms so was felt to be asymptomatic and clinically unimportant at this time * bladder urine retention has resolved at this time as has her constipation. PLANS: * Continue muscle relaxers and analgesics * Allow time for injected steroids to provide benefit, will give 1 dose of oral prednisone to supplement that today * Continued attempts to increase mobility as able, with physical therapy * Discharge when she is mobile enough and has reasonable pain control * Upon discharge Dr. Leon plans to have her referred to Dr. Everardo Sales SUBJECTIVE: Last night she had injections of lidocaine and steroid to the left hip intra- articular, as well as the left ileus psoas tendon. These lead to prompt improvement in pain and she was able to move little better last night. However 1st time she tried to get up this morning she had again severe pain and spasm in the left hip and iliopsoas area. This was fairly slow to resolve. More recently now this afternoon she has actually been able to start moving better with less pain and less spasm. OBJECTIVE Vitals reviewed: Stable without fever Exam: alert oriented currently while lying supine in bed appears uncomfortable but relaxed skin warm dry color ok resps not labored lungs clear BSs heart regular abd soft nondistended nontender, bowel sounds present limbs still no palpable abnormalities at the hip or pelvis or inguinal area, and does on previous exam she has good passive range of motion without pain at the hip iv site ok Radiology: MRI of the pelvis and hip with and without contrast shows a partial anterior labral tear at the left hip, some tendinosis of the left hamstring origin, no evidence of ileus OS or other muscular abnormality, abscess, or other inflammatory infectious process. Objective: Vital Signs Temp Pulse Resp BP Pulse Ox 36.7 C 89 14 118/77 92 02/12/18 15:56 02/12/18 15:56 02/12/18 15:56 02/12/18 15:56 02/12/18 15:56 Laboratory Results 02/10/18 03:34 02/11/18 02/12/18 02/13/18 06:59 06:59 06:59 Intake Total 300 1400 Output Total 085 828 8921 Balance -325 1250 -1500 ICD10 Worksheet Patient Problems: Problems Problem Status Onset Low back pain Acute Pain management Acute
[2018-02-12] MEDS: ROSUVASTATIN CALCIUM 20 MG TAB PO SCH (20:01)
[2018-02-13] MEDS: CYCLOBENZAPRINE 10 MG TAB PO SCH ×3 (06:10→21:29)
--- NOTE | 2018-02-13 06:27 | NEUSURGPN ---
Assessment/Plan: Assessment: 57 yo female with left sided inguinal pain that increases with flexion and abduction of her left hip, she has some secondary pain radiating below the knee down into the ankle-both complaints are better overall Prior MRI L spine reviewed with Dr Reynolds show disc bulges at L4/5 and L5/S1 but no severe compression. Dr. Reynolds is not certain her primary pain is spine related Prior MRI pelvis done with findings of partial labrum tear and ischial tuberosity edema, ortho eval felt pain related to iliopsoas, attempted injection that had some positive response Plan: -pain control and muscle relaxers -continue with PT/OT -continue to follow for response to steroid which patient states that she is a bit better overall -will continue to follow -follow Ortho recommendations -call with any questions or concerns -pt understands and agrees -d/w Dr Reynolds Subjective: Awake and alert. No new complaints overnight. No pickens/neck/chest/abd or gu complaints. Objective: AAO x 3, PERRLA/EOMI no droop CN 2-12 grossly intact +lt touch 5/5 BUE/BLE = Neuro Check Frequency: per routine Urinary Catheter in Place: No - Physician Discussed Patient with : [facility] Physical Exam - Vitals, I&O, Labs I and O 02/12/18 02/13/18 02/14/18 05:59 05:59 05:59 Intake Total 1400 1400 Output Total 150 2800 Balance 1250 -1400 Intake: Oral (ml) 1400 1400 Output: Urine (ml) 150 1500 Bedside Commode 150 1500 Liquid Stool (ml) 100 Bedside Commode 100 Urine/Stool Mix (ml) 1200 Bedside Commode 1200 Other: Number of Voids Bedside Commode 1 1 Number of Stools Bedside Commode 1 Catheter 0 Vital Signs Temp Pulse Resp BP Pulse Ox 37.0 C 79 16 108/75 95 02/13/18 06:15 02/13/18 06:15 02/13/18 06:15 02/13/18 06:15 02/13/18 06:15 Laboratory Results 02/10/18 03:34 ICD10 Worksheet Patient Problems: Problems Problem Status Onset Low back pain Acute Pain management Acute
[2018-02-13] MEDS: SENNOSIDES/DOCUSATE SODIUM TAB PO SCH ×2 (09:31→21:27)
--- NOTE | 2018-02-13 14:15 | HOSPPROG ---
Hospitalist Progress Note Assessment/Plan: DIAGNOSES: # severe and incapacitating pain at the left hip and ilepsoas with any movement * Unknown etiology after multiple exams and MRI studies * now with some improvement s/p hip steroid/lidocaine injection and today has been able to ambulate and no longer requiring narcotics * does seem to be come component of severe muscle spasm and flexeril is helping * if sxs continue to be largely resolved in am, will dc home. Discussed at length that if she does not continue to improve, further imaging/testing may be needed * There is a plan for patient to f/u with Dr. Everardo Sales after dc, appreciate ortho eval * lumbar disc disease with some L5-S1 disc protrusion on the left is very radiologically mild and not consistent with her presenting symptoms so was felt to be asymptomatic and clinically unimportant at this time -appreciate nsg input * bladder urine retention has resolved at this time as has her constipation. * IP status * Patient new to my care. Old records reviewed and summarized as above. Care plan reviewed with multidisciplinary team. Subjective: no significant overnight events, patient is feeling much better today, she notes she is able to walk and move her leg which she was not able to do previously, she has not required opiates today Objective: Vital Signs Temp Pulse Resp BP Pulse Ox 37.0 C 79 16 108/75 95 02/13/18 06:15 02/13/18 06:15 02/13/18 06:15 02/13/18 06:15 02/13/18 06:15 Laboratory Results 02/10/18 03:34 02/12/18 02/13/18 02/14/18 05:59 05:59 05:59 Intake Total 1400 1400 Output Total 150 2800 Balance 1250 -1400 awake alert anicteric op clear rrr no mrg cta b soft nt nd no cce warm dry well perfused oriented appropriate ICD10 Worksheet Patient Problems: Problems Problem Status Onset Low back pain Acute Pain management Acute
--- NOTE | 2018-02-13 15:07 | ASMTCMCOM ---
CM Note CM Note Notes: Pts case discussed in tx rounds. According to RN, pt is up and pivoting to the bathroom. Pt got a steroid injection to the hip this last Tuesday. Therapies have cleared pt to d/c independent without any needs. CM available for changes. Plan: Independent Date Signed: 02/13/2018 03:07 PM Electronically Signed By:DENZEL Walker
[2018-02-13] MEDS: NAPROXEN SODIUM 220 MG TAB PO SCH ×2 (15:27→21:28)
[2018-02-13] MEDS: ROSUVASTATIN CALCIUM 20 MG TAB PO SCH (21:28)
[2018-02-14] MEDS: CYCLOBENZAPRINE 10 MG TAB PO SCH ×2 (05:21→13:05)
[2018-02-14] MEDS: DIAZEPAM 5 MG TAB PO PRN (07:28)
[2018-02-14] MEDS: SENNOSIDES/DOCUSATE SODIUM TAB PO SCH (08:11)
[2018-02-14] MEDS: NAPROXEN SODIUM 220 MG TAB PO SCH (08:12)
[2018-02-14] MEDS ORDERED: GABAPENTIN 300 MG CAP PO SCH (09:30)
--- NOTE | 2018-02-14 09:30 | NEUSURGPN ---
Assessment/Plan: Assessment: 57 yo female with left sided inguinal pain that increases with flexion and abduction of her left hip, she has some secondary pain radiating below the knee down into the ankle-both complaints are better overall Prior MRI L spine reviewed with Dr Reynolds show disc bulges at L4/5 and L5/S1 but no severe compression. Dr. Reynolds is not certain her primary pain is spine related Prior MRI pelvis done with findings of partial labrum tear and ischial tuberosity edema, ortho eval felt pain related to iliopsoas, attempted injection that had some positive response Plan: -pain control and muscle relaxers. Will start Gabapentin QHS. -Ok to discharge from our standpoint, we will have patient follow up with us in 2 weeks. We will sign off. -continue with PT/OT -follow Ortho recommendations -call with any questions or concerns -Discussed patient with Dr Reynolds Subjective: Continue left leg pain, intermittent shooting left lateral leg pain Objective: AxO x3 PERRLA JOHN x4 5/5 BLE Sensation intact to light touch BLE Neuro Check Frequency: per routine Urinary Catheter in Place: No - Physician Discussed Patient with : [facility] Physical Exam - Vitals, I&O, Labs I and O 02/13/18 02/14/18 02/15/18 05:59 05:59 05:59 Intake Total 1400 150 Output Total 2800 Balance -1400 150 Intake: Oral (ml) 1400 150 Output: Urine (ml) 1500 Bedside Commode 1500 Liquid Stool (ml) 100 Bedside Commode 100 Urine/Stool Mix (ml) 1200 Bedside Commode 1200 Other: Intake Quantity Yes Sufficient Number of Voids Bedside Commode 1 1 Toilet 3 1 Number of Stools Bedside Commode 1 Catheter 0 Vital Signs Temp Pulse Resp BP Pulse Ox 36.7 C 72 16 111/73 98 02/14/18 08:00 02/14/18 08:00 02/14/18 08:00 02/14/18 08:00 02/14/18 08:00 Laboratory Results 02/10/18 03:34 ICD10 Worksheet Patient Problems: Problems Problem Status Onset Low back pain Acute Pain management Acute
--- NOTE | 2018-02-14 12:37 | ASMTLACE ---
LACE Length of stay for Answers: 4-6 days current admission Acuity / Level of Answers: Yes Care: Did the patient have an inpatient admission? 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
[2018-02-14 13:01] VITALS: BP 105/69
--- NOTE | 2018-02-14 17:37 | ASDISCHSUM ---
Discharge Information Plan Status:Home with No Needs Medically Cleared to Leave:02/14/2018 Discharge Date:02/14/2018 01:48 PM CM D/C Disposition:Home, Routine, Self-Care ADT D/C Disposition:Home, Routine, Self-Care Projected Discharge Date:02/14/2018 01:48 PM Transportation at D/C:Family Discharge Delay Reason: Follow-Up Date:02/14/2018 01:48 PM Discharge Slot: Final Diagnosis:back pain Placement Information Patient Contact Information Contact Name:HILARIO Relationship: Address:[address] [address] City:[place] Alternate Phone: State/Zip Code:[place] [address] Email: Financial Information Financial Class:HMO and PPO Plans Primary Plan Desc:[employer] Primary Plan Number:[id number] Secondary Plan Desc: Secondary Plan Number: Assessment Information [facility] Initial CM Assessment Living Arrangements What is your living Answers: With Spouse arrangement? Who do you live with? Type Of Residence What kind of residence do Answers: House you live in? Discharge Plan Comments Coordination Status Comments Notes: Pts case discussed in tx rounds. Pt is a 57 y/o female admitted for back pain. 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 Therapies have been ordered and awaiting recommendations. Needs are TBD at this time. CM to follow. Plan: TBD Date Signed: 02/09/2018 01:55 PM Electronically Signed By:DENZEL Walker LACE LACAnnabelle Length of stay for Answers: 4-6 days current admission Acuity / Level of Answers: Yes Care: Did the patient have an inpatient admission? Comorbidities - select Answers: Other Notes: Asthma; Vertebral arter y all that apply dissection # of Emergency department Answers: 1-2 visits in the last 6 months Score: 9 Date Signed: 02/14/2018 12:37 PM Electronically Signed By:Barbara Lynch [facility] CM Progress Note CM Note CM Note Notes: Pts case discussed in tx rounds. PT is recommending DME and pending improvement of pain. Pt has not been up walking since getting to the hospital. Dr. Fatima will be visiting w/ pt today. Needs are TBD at this time. CM to follow. Plan: TBD Date Signed: 02/10/2018 12:15 PM Electronically Signed By:DENZEL Walker [facility] CM Progress Note CM Note CM Note Notes: Chart reviewed for discharge planning purposes, patient continues to have pain that compromises her mobility. CM to follow. Plan: TBD Date Signed: 02/12/2018 02:33 PM Electronically Signed By:Antonietta Rubalcava RN [facility] CM Progress Note CM Note CM Note Notes: Pts case discussed in tx rounds. According to RN, pt is up and pivoting to the bathroom. Pt got a steroid injection to the hip this last Tuesday. Therapies have cleared pt to d/c independent without any needs. CM available for changes. Plan: Independent Date Signed: 02/13/2018 03:07 PM Electronically Signed By:DENZEL Walker Case Management Discharge Plan Note Case Management Discharge Discharge Order Complete? Answers: Yes Patient to Obtain Answers: via Family Medications Transportation Arranged Answers: Family/Friends Transport will Pick (Date 02/14/2018 12:00 AM & Time) Family Notified Answers: Yes Notes: by pt. Discharge Comments Notes: Spoke with RN and pt in the room. Pt lives at home independently with who will be available to help her upon discharge. Pt comfortable with this plan. No further CM needs noted at this time. CM available should plans change. Date Signed: 02/14/2018 05:36 PM Electronically Signed By:Barbara Lynch Intervention Information
== END 2018-02-14 13:48 | disposition home or self-care (01) | DRG 558 ==
LOC: EDUNIT# → F2W 16:04 → OBSVTOIN 02-09 21:30
PROVIDERS: ADMIT Internal Medicine; ATTEND Internal Medicine
DX: M24.252 Disorder of ligament, left hip (principal); M25.452 Effusion, left hip; M51.27 Other intervertebral disc displacement, lumbosacral region; M51.17 Intervertebral disc disorders with radiculopathy, lumbosacral region; E78.5 Hyperlipidemia, unspecified; J45.909 Unspecified asthma, uncomplicated; R33.9 Retention of urine, unspecified; K59.00 Constipation, unspecified
CPT/HCPCS: 96374; 97110-GP; 97116-GP; 97140-GP; 97162-GP; 97165-GO; 97530-GO; 97530-GP; 97535-GO; G0378; J1030; J1040; J1100; J1170; J1885; J2405; J2550; J3301; J7512; Q9967

== ENCOUNTER 2018-07-31 13:31 | Emergency (ER) | payer OTHER | END 2018-07-31 16:23 | disposition home or self-care (01) ==